=== PATIENT | female | born 1985 | race Caucasian/White ===

== ENCOUNTER 2016-08-29 10:01 | Emergency (ER) | payer OTHER ==
[~2016-08-29] VITALS: Ht 175.3 cm; Wt 115.0 kg
[~2016-08-29 10:01] MED LIST: FLUO1TAB3 PO; GABA300C5 PO; GUAI100S5 PO; LEVA750T PO; MAGICPED SWISH-SWAL; OXYC1TAB63 PO; PRED20 PO; VENTAER INH; WALKER WHEELS/F1 MIS; ZOFR4TAB PO
[2016-08-29 10:03] VITALS: BP 133/82; PULSE 114; RESP 24; TEMP 98.1; O2SAT 95
[2016-08-29] MEDS ORDERED: SODIUM CHLOR 0.9% 1000 ML INJ 1,000 ML IV SCH (10:32)
[2016-08-29] MEDS ORDERED: ONDANSETRON HCL 4 MG/2 ML VIAL IVP ONE (10:45)
[2016-08-29] MEDS ORDERED: SODIUM CHLORIDE 0.9% FLUSH 5 ML FLUSH IVF PRN (10:45)
[2016-08-29] MEDS ORDERED: HYDROmorphone HCL PF 1 MG/ML VIAL IVS ONE (10:45)
--- NOTE | 2016-08-29 10:50 | PD ---
HPI Chief Complaint: Pain: Acute or Chronic Time Seen by Provider: 10:24 Travel History International Travel<30 days: No Contact w/Intl Traveler<30days: No Traveled to known affect area: No History of Present Illness HPI Patient is a 30-year-old female who presents to emergency room with complaints with acute on chronic pain. Patient reports that she has been having pain all over body since July, reports that she was admitted to the hospital for leukocytosis, reports that she was told that she had a viral infection and once her WBC went down, she was discharged to home with with prescription for pain medications and instructions to follow-up with Dr. Ernst in the office. Patient reports that she did go for follow-up appointment, reports that she reviewed the events of what occurred in the hospital and nothing else was done for her. Patient reports that she continues to have pain all over her whole body including her legs, reports left-sided calf pain, reports intermittent abdominal pain, reports that she has no abdominal pain at this time but does feel constipated from taking pain medications. Patient is complaining of productive cough, no fevers or chills. Patient denies chest pain or shortness of breath at this time. Patient reports that she is having pain all over body still, reports that she went to 2 other hospitals and was told that ultimately she will have to follow up with a table runner. Patient reports that she is out of her pain medications and is requesting a refill on her Percocets. Patient is requesting high-dose a Percocets as the 53 25 mg tablets do not help with her pain. Patient is requesting to have no workup at this time, patient does not want an IV placed, she is refusng labs or CAT scans or ultrasounds or x-rays performed at this time, patient reports that she is solely here for pain medication refills. PFSH Past Medical History Anxiety: Yes Depression: Yes Cancer: No Cardiovascular Problems: No Endocrine: No Gastrointestinal Disorders: Yes (Unkown etiology) Genitourinary: No Implanted Vascular Access Dvce: No Musculoskeletal: No Neurologic: No Psychiatric: Yes Reproductive: No Respiratory: No ?: Not LMP: AUG 2016 Past Surgical History Surgical History: No Previous Surgery Other Surgery: No Social History Alcohol Use: Yes (OCC) Tobacco Use: Yes (1/ PPD) Substance Use: Yes (MARIJUANA DAILY) Allergies-Medications (Allergen,Severity, Reaction): Coded Allergies: Adhesives (Verified Allergy, Unknown, 08/22/16) Reported Meds & Prescriptions Reported Meds & Active Scripts Active Ibuprofen 600 Mg Tab 600 Mg PO Q6H PRN Percocet (Oxycodone-Acetaminophen) 5-325 mg Tab 1 Tab PO Q6H PRN Walker with Front Wheels (Device) 1 Mis Mis 1 Ea .ROUTE DIRECTED Guaifenesin-Codeine Liq 100-10 Mg/5 Ml Soln 5 Ml PO Q4H PRN Ventolin Hfa 18 GM Inh (Albuterol Sulfate) 90 Mcg/Act Aer 1 Puff INH Q4H PRN Fluoxetine (Fluoxetine HCl) 20 Mg Tab 30 Mg PO DAILY Gabapentin 300 Mg Cap 300 Mg PO HS Reported Oxycodone-Acetaminophen 5-325 mg Tab 1 Tab PO Q4H PRN Prednisone 20 Mg Tab 2 Tab PO DAILY 40 MG twice a day x 3 days, then 20 MG daily x 3 days, then 10 MG daily x 3 days Review of Systems General / Constitutional: No: Fever, Chills Eyes: No: Visual changes HENT: No: Headaches Cardiovascular: No: Chest Pain or Discomfort Respiratory: Positive: Cough, No: Shortness of Breath Gastrointestinal: Positive: Nausea, Abdominal Pain, No: Vomiting, Diarrhea Genitourinary: No: Urgency, Frequency, Dysuria Musculoskeletal: Positive: Myalgias, Arthralgias, Pain Skin: No Rash Neurologic: No: Weakness Psychiatric: No: Depression Endocrine: No: Polydipsia Hematologic/Lymphatic: No: Easy Bruising Physical Exam Narrative GENERAL: Nontoxic, no acute distress SKIN: Warm and dry. HEAD: Atraumatic. Normocephalic. ENT: No nasal bleeding or discharge. Mucous membranes pink and moist. NECK: Trachea midline. No JVD. CARDIOVASCULAR: Regular rate and rhythm. No murmur appreciated. RESPIRATORY: No accessory muscle use. Clear to auscultation. Breath sounds equal bilaterally. GASTROINTESTINAL: Abdomen soft, non-tender, nondistended. Hepatic and splenic margins not palpable. MUSCULOSKELETAL: No obvious deformities. No clubbing. No cyanosis. No edema. Patient with positive Homans sign to the left calf NEUROLOGICAL: Awake and alert. No obvious cranial nerve deficits. Motor grossly within normal limits. Normal speech. PSYCHIATRIC: Appropriate mood and affect; insight and judgment normal. Data Data Last Documented VS Vital Signs Date Time Temp Pulse Resp B/P Pulse Ox O2 Delivery O2 Flow Rate FiO2 08/29/16 11:19 91 23 136/58 99 08/29/16 10:03 98.1 Room Air Orders Complete Blood Count With Diff (08/29/16 10:32) Comprehensive Metabolic Panel (08/29/16 10:32) Lipase (08/29/16 10:32) Urinalysis - C+S If Indicated (08/29/16 10:32) Iv Access Insert/Monitor (08/29/16 10:32) Oximetry (08/29/16 10:32) Ondansetron Inj (Zofran Inj) (08/29/16 10:45) Sodium Chlor 0.9% 1000 Ml Inj (Ns 1000 M (08/29/16 10:32) Sodium Chloride 0.9% Flush (Ns Flush) (08/29/16 10:45) Chest, Single Ap (08/29/16 10:32) Hydromorphone Pf Inj (Dilaudid Pf Inj) (08/29/16 10:45) Ed Urine Pregnancytest Poc (08/29/16 10:32) Us Leg Venous Doppler (08/29/16 ) Lactic Acid Sepsis Protocol (08/29/16 10:50) Influenzae A/B Antigen (08/29/16 10:50) Blood Culture (08/29/16 13:02) Labs Laboratory Tests Test 08/29/16 08/29/16 08/29/16 10:30 10:50 12:15 White Blood Count 18.8 TH/MM3 Red Blood Count 4.20 MIL/MM3 Hemoglobin 12.7 GM/DL Hematocrit 37.4 % Mean Corpuscular Volume 89.0 FL Mean Corpuscular Hemoglobin 30.3 PG Mean Corpuscular Hemoglobin 34.1 % Concent Red Cell Distribution Width 13.3 % Platelet Count 530 TH/MM3 Mean Platelet Volume 7.7 FL Neutrophils (%) (Auto) 85.1 % Lymphocytes (%) (Auto) 9.4 % Monocytes (%) (Auto) 4.7 % Eosinophils (%) (Auto) 0.5 % Basophils (%) (Auto) 0.3 % Neutrophils # (Auto) 16.0 TH/MM3 Lymphocytes # (Auto) 1.8 TH/MM3 Monocytes # (Auto) 0.9 TH/MM3 Eosinophils # (Auto) 0.1 TH/MM3 Basophils # (Auto) 0.1 TH/MM3 CBC Comment DIFF FINAL Differential Comment Sodium Level 137 MEQ/L Potassium Level 4.1 MEQ/L Chloride Level 102 MEQ/L Carbon Dioxide Level 25.7 MEQ/L Anion Gap 9 MEQ/L Blood Urea Nitrogen 9 MG/DL Creatinine 0.66 MG/DL Estimat Glomerular Filtration 105 ML/MIN Rate Random Glucose 99 MG/DL Lactic Acid Level 2.0 mmol/L Calcium Level 8.9 MG/DL Total Bilirubin 0.6 MG/DL Aspartate Amino Transf 10 U/L (AST/SGOT) Alanine Aminotransferase 35 U/L (ALT/SGPT) Alkaline Phosphatase 112 U/L Total Protein 8.1 GM/DL Albumin 3.1 GM/DL Lipase 96 U/L Urine Color YELLOW Urine Turbidity HAZY Urine pH 8.5 Urine Specific [place] 1.018 Urine Protein 30 mg/dL Urine Glucose (UA) NEG mg/dL Urine Ketones NEG mg/dL Urine Occult Blood NEG Urine Nitrite NEG Urine Bilirubin NEG Urine Urobilinogen LESS THAN 2.0 MG/DL Urine Leukocyte Esterase NEG Urine RBC 1 /hpf Urine WBC 1 /hpf Urine Squamous Epithelial 5 /hpf Cells Microscopic Urinalysis Comment CULT NOT INDICATED MDM Medical Decision Making Medical Screen Exam Complete: Yes Emergency Medical Condition: Yes Interpretation(s) Vital Signs Date Time Temp Pulse Resp B/P Pulse Ox O2 Delivery O2 Flow Rate FiO2 08/29/16 10:03 98.1 114 24 133/82 95 Room Air Differential Diagnosis Acute on chronic pain, fibromyalgia, constipation, DVT, pneumonia, influenza, electrolyte abnormality, opiate abuse Narrative Course Patient is a 30-year-old female who presents to emergency room for evaluation of acute on chronic pain. Patient reports that she started taking pain medications after she was discharged from the hospital in July, reports that she has run out of her pain medications. Patient reports that she has frequented to other emergency rooms, reports that she has a leukocytosis of unknown etiology and pain all over her body. Patient reports that she cannot afford to see a primary care doctor as she does not have insurance and cannot pay for her healthcare. Patient at this time refuses all medical workup and requests pain medications specifically, requests IV Dilaudid in the emergency room as this is the only pain medication that helps her. Patient also requests a refill on her Percocet, requests a higher dose of Percocet because the 5/325 mg dose is not helping with her pain. Patient vital signs reviewed, patient is tachycardic with a heart rate in the 114's with a respiratory rate of 24 On evaluation, patient is nontoxic, but she does have left lower leg cramping and pain to her calf. Discussed with patient that she was recently admitted to the hospital with sepsis of unknown etiology, she reports that she has been coughing for the past few days, discussed that with this and her abnormal vital signs, she will need a medical workup. Discussed with her that I cannot just give her pain medications and send her home as this would be unsafe for her. Discussed my concern for her safety at this time. Also discussed with patient that she will need to follow-up with primary care doctor and discussed with her that she cannot use the emergency room as her chronic pain medication prescribers. X-ray of the chest ordered for further evaluation of possible pneumonia. CBC, BMP ordered for evaluation of infection versus electrolyte abnormalities. Patient reevaluated, patient reports that she is feeling better. Abdomen is soft, nontender, nondistended, no peritoneal signs. CBC & BMP Diagram 08/29/16 10:30 08/29/16 10:50 Patient with persistent leukocytosis with a white count of 18.8 with no source of infection. Lactate is 2.0, her BMP is within normal limits UA with no signs of infection, influenza negative, x-ray of chest with no signs pneumonia US OF LEFT EXTREMITY WITH NO SIGNS OF DVT Discussed with patient that if she continues have pain to her left lower extremity, she will need a repeat some of her leg in 1 week. I did offer patient admission for further work up of her leukocytosis, patient does not want to be admitted to the hospital, further that blood cultures be obtained and be followed, reports that she feels worse, she will return to the emergency room for further admission and workup. Request to be discharged from emergency room at this time. Signs and symptoms of when to return to the emergency room reviewed patient in detail. Diagnosis Primary Impression: Leukocytosis Qualified Code: D72.828 - Other elevated white blood cell (WBC) count Additional Impression: Chronic pain Qualified Code: G89.4 - Chronic pain syndrome Patient Instructions: General Instructions, Narcotic given in the ED Additional Instructions: Please follow-up with your primary care doctor as soon as possible Return to ER as needed Please follow-up with [facility] from today Please have ultrasound of your leg repeated in 1 week if pain persists Med/Other Pt SpecificInfo: Prescription(s) given Scripts Ibuprofen 600 Mg [id number] Mg PO Q6H PRN (Pain/Inflammation) #40 TAB Ref 0 Prov:Aisha Haynes DO 08/29/16 Oxycodone-Acetaminophen (Percocet)5-325 mg Tab1 Tab PO Q6H PRN (PAIN) #7 TAB Ref 0 Prov:Aisha Haynes DO 08/29/16 Disposition: 01 DISCHARGE HOME Condition: Stable Aisha Haynes DO Aug 29, 2016 10:50
--- NOTE | 2016-08-29 11:08 | RADRPT ---
EXAM DATE/TIME: 08/29/2016 10:48 [facility] COMPARISON: CHEST SINGLE AP, July 29, 2016, 13:01. INDICATIONS : Evaluate for free air. MEDICAL HISTORY : Anxiety SURGICAL HISTORY : None. ENCOUNTER: Initial ACUITY: 1 month PAIN SCORE: 10/10 LOCATION: Bilateral chest FINDINGS: A single view of the chest demonstrates the lungs to be symmetrically aerated without evidence of mas s, infiltrate or effusion. The cardiomediastinal contours are unremarkable. Osseous structures are intact. No free intraperitoneal air is identified on this examination. CONCLUSION: No acute cardiopulmonary disease. No free intraperitoneal air identified. Greg Barragan MD on August 29, 2016 at 11:06 Board Certified Radiologist. This report was verified electronically.
[2016-08-29 11:16] LABS: BASOPHIL # 0.1 TH/MM3 (0-0.2); BASOPHIL % 0.3 % (0.0-2.0); EOSINOPHIL # 0.1 TH/MM3 (0-0.4); EOSINOPHIL % 0.5 % (0.0-4.0); HEMATOCRIT 37.4 % (35.0-46.0); HEMO FLAGS DIFF FINAL; LYMPH % 9.4 % (9.0-44.0); LYMPHOCYTE # 1.8 TH/MM3 (1.0-4.8); MEAN CORPUSCULAR HEMOGLOBIN 30.3 PG (27.0-34.0); MEAN CORPUSCULAR HGB CONC 34.1 % (32.0-36.0); MONO % 4.7 % (0.0-8.0); NEUT % 85.1 % (16.0-70.0); PLATELET COUNT 530 TH/MM3 (150-450); RED CELL DISTRIBUTION WIDTH 13.3 % (11.6-17.2); WHITE BLOOD COUNT 18.8 TH/MM3 (4.0-11.0)
[2016-08-29 11:19] VITALS: BP 136/58; PULSE 91; RESP 23; O2SAT 99
[2016-08-29 11:35] LABS: ANION GAP 9 MEQ/L (5-15); AST (GOT) 10 U/L (15-37); BICARBONATE 25.7 MEQ/L (21.0-32.0); BLOOD UREA NITROGEN 9 MG/DL (7-18); CHLORIDE 102 MEQ/L (98-107); GLOMERULAR FILTRATION RATE 105 ML/MIN (>89); POTASSIUM 4.1 MEQ/L (3.5-5.1); SODIUM (NA) 137 MEQ/L (136-145)
[2016-08-29 11:38] LABS: ALKALINE PHOSPHATASE 112 U/L (45-117); ALT (GPT) 35 U/L (10-53); TOTAL BILIRUBIN ADULT 0.6 MG/DL (0.2-1.0)
--- NOTE | 2016-08-29 12:14 | RADRPT ---
EXAM DATE/TIME: 08/29/2016 11:18 [facility] COMPARISON: No previous studies available for comparison. INDICATIONS : Pain in left lower extremity. MEDICAL HISTORY : Abdominal pain. Aneixty. Depression. SURGICAL HISTORY : None. ENCOUNTER: Initial ACUITY: 1 month PAIN SCORE: 5/10 LOCATION: Left leg. TECHNIQUE: Venous ultrasound of the leg was performed from the inguinal ligament to the proximal calf. Real-alpesh e, color Doppler and spectral tracing, compression and augmentation techniques were used. FINDINGS: There is normal compressibility of the deep venous system from the inguinal region to the proximal ca lf. No echogenic clot is seen in the lumen of the common femoral, femoral, popliteal, and posterior tibial veins. There is a normal response of the venous system to proximal and distal augmentation an d respiration. CONCLUSION: Normal examination. Nhung Mcgregor MD on August 29, 2016 at 12:12 Board Certified Radiologist. This report was verified electronically.
[2016-08-29 12:32] LABS: BLOOD, URINE NEG (NEG); GLUCOSE,URINE NEG (NEG); KETONE, URINE NEG (NEG); NITRITE,URINE NEG (NEG); PH, URINE 8.5 (5.0-8.5); SQUAMOUS EPITHELIAL CELL URINE 5 /hpf (0-5); URINE COLOR YELLOW (YELLW/STRAW)
[2016-08-29 12:33] LABS: COMMENT (UR) CULT NOT INDICATED; CULTURE IF INDICATED CULT NOT INDICATED
[2016-08-29] MEDS ORDERED: PERC5TAB12 PO (13:05)
[2016-08-29] MEDS ORDERED: IBUP-232 PO (13:05)
== END 2016-08-29 14:09 | disposition home or self-care (01) ==
LOC: NEPA 10:01
DX: D72.828 Other elevated white blood cell count (principal); G89.4 Chronic pain syndrome; M79.605 Pain in left leg
CPT/HCPCS: 71010; 80053; 81001; 83605; 83690; 85025; 87040; 87804; 93971; 96374; 96375; 99284; J1170; J2405; J7030

== ENCOUNTER 2016-08-31 05:23 | Emergency (ER) | payer OTHER ==
[~2016-08-31] VITALS: Ht 177.8 cm; Wt 90.0 kg
[~2016-08-31 05:23] MED LIST changes: +IBUP-232 PO; -LEVA750T PO; -MAGICPED SWISH-SWAL; +PERC5TAB12 PO; -ZOFR4TAB PO
[2016-08-31 05:25] VITALS: BP 122/88; PULSE 86; RESP 18; TEMP 98.7; O2SAT 98
[2016-08-31] MEDS ORDERED: PROMETHAZINE INJ 25 MG/ML VIAL IM ONE (05:45)
[2016-08-31] MEDS ORDERED: BENT20TA PO (05:54)
[2016-08-31] MEDS ORDERED: PROM25TA5 PO (05:54)
--- NOTE | 2016-08-31 05:56 | PD ---
HPI Chief Complaint: GI Complaint Time Seen by Provider: 05:36 Travel History International Travel<30 days: No Contact w/Intl Traveler<30days: No Traveled to known affect area: No History of Present Illness HPI 30-year-old female here for the fourth time over the course the last 1-2 months with complaint of generalized body pain, sore throat, cough, chest congestion. Patient has had these symptoms again for the last 1-2 months. She is out of her pain medications and presents the emergency department requesting something for pain. Patient states that she is having pain throughout the body, 1 spot not worse than the next. Associated nausea and vomiting. No fevers or chills. She notes a sore throat, cough and chest congestion with minimal sputum production. No recent travel or sick contacts. Patient seen here in emergency department approximately 36 hours ago with negative laboratory workup other than baseline mild leukocytosis which she has had previously (and had recently been on corticosteroids). Both on that visit and today she requests Dilaudid by name, as does the female guest in her room, stating that morphine and Toradol do not work for her. Female auditor appraiser states "we know they don't do Dilaudid at the other ER, but they gave her something that helped and we would like that here". Patient has follow-up with rheumatology in October, but does not have health insurance and has not followed up with PCP. Her gabapentin was recently increased and she was started on Cymbalta. PFSH Past Medical History Anxiety: Yes Depression: Yes Cancer: No Cardiovascular Problems: No Endocrine: No Gastrointestinal Disorders: Yes (Unkown etiology) Genitourinary: No Implanted Vascular Access Dvce: No Musculoskeletal: No Neurologic: No Psychiatric: Yes Reproductive: No Respiratory: No ?: Not LMP: AUG 2016 Past Surgical History Other Surgery: No Social History Alcohol Use: Yes (OCC) Tobacco Use: Yes (08/20 PPD) Substance Use: Yes (MARIJUANA DAILY) Allergies-Medications (Allergen,Severity, Reaction): Coded Allergies: Adhesives (Verified Allergy, Unknown, 08/31/16) Reported Meds & Prescriptions Reported Meds & Active Scripts Active Bentyl (Dicyclomine HCl) 20 Mg Tab 20 Mg PO TID PRN Phenergan (Promethazine HCl) 25 Mg Tab 25 Mg PO Q6H PRN Ibuprofen 600 Mg Tab 600 Mg PO Q6H PRN Percocet (Oxycodone-Acetaminophen) 5-325 mg Tab 1 Tab PO Q6H PRN Walker with Front Wheels (Device) 1 Mis Mis 1 Ea .ROUTE DIRECTED Guaifenesin-Codeine Liq 100-10 Mg/5 Ml Soln 5 Ml PO Q4H PRN Ventolin Hfa 18 GM Inh (Albuterol Sulfate) 90 Mcg/Act Aer 1 Puff INH Q4H PRN Fluoxetine (Fluoxetine HCl) 20 Mg Tab 30 Mg PO DAILY Gabapentin 300 Mg Cap 300 Mg PO HS Reported Oxycodone-Acetaminophen 5-325 mg Tab 1 Tab PO Q4H PRN Prednisone 20 Mg Tab 2 Tab PO DAILY 40 MG twice a day x 3 days, then 20 MG daily x 3 days, then 10 MG daily x 3 days Review of Systems Except as stated in HPI: all other systems reviewed are Neg Physical Exam Narrative GENERAL: Morbidly obese female in no acute distress SKIN: Warm and dry. HEAD: Normocephalic. EYES: No scleral icterus. No injection or drainage. ENT: Mucous membranes pink and moist. Posterior pharynx clear without tonsillar erythema, exudate, edema. NECK: Supple CARDIOVASCULAR: Regular rate and rhythm. No murmur appreciated. RESPIRATORY: No accessory muscle use. Clear to auscultation. Breath sounds equal bilaterally. GASTROINTESTINAL: Abdomen soft, non-tender, nondistended. Obese MUSCULOSKELETAL: Moves all extremities normally NEUROLOGICAL: Awake and alert. Normal gait. Normal speech. PSYCHIATRIC: Blunted mood and affect, poor eye contact Data Data Last Documented VS Vital Signs Date Time Temp Pulse Resp B/P Pulse Ox O2 Delivery O2 Flow Rate FiO2 08/31/16 05:25 98.7 86 18 122/88 98 Room Air Orders Promethazine Inj (Phenergan Inj) (08/31/16 05:45) Dicyclomine Inj (Bentyl Inj) (08/31/16 06:00) MDM Medical Decision Making Medical Screen Exam Complete: Yes Emergency Medical Condition: Yes Medical Record Reviewed: Yes Differential Diagnosis 30-year-old female here with one to 2 months of generalized body aches, pains, cough cold chest congestion, nausea and vomiting with leukocytosis of undetermined etiology. Differential includes chronic pain, rheumatoid disorder , autoimmune disorder, fibromyalgia, medication side effect, opioid withdrawal, malingering, drug-seeking behavior. Narrative Course Patient has had extensive workup, most recently with labs just with the last 36 hours and were unremarkable. Patient requests not to have any further workup here today, only wanting "something for my pain". Patient and female auditor appraiser again reiterate that morphine and Toradol didn't work for her, Dilaudid has worked for her in the past. Patient has multiple red flags for drug-seeking behavior. Patient has chronic pain and opioids are not appropriate care plan. This was discussed with her and her female auditor appraiser. I informed them that I am happy to treat her pain with any nonnarcotic means possible. Patient was given IM Phenergan, Bentyl. Shortly after medication administration patient questioned how long it would take for her medications to kick in because she "needs to get home to get a family member to work." I offered to allow her to stay for oral challenge but patient is requesting discharged home at this time. Her prompt voluntary request for discharge prior to symptom resolution after I declined treating her with narcotics is yet another flag for drug-seeking behavior. She was encouraged to follow up with outpatient PCP and given information for [facility], patient assistance. Diagnosis Primary Impression: Drug-seeking behavior Additional Impressions: Chronic pain Qualified Code: G89.4 - Chronic pain syndrome Nausea & vomiting Qualified Code: R11.2 - Non-intractable vomiting with nausea, unspecified vomiting type Arthralgia Qualified Code: M25.50 - Arthralgia, unspecified joint Myalgia Referrals: Lisseth Ernst MD call for appointment Additional Instructions: Phenergan as needed for nausea. Bentyl as needed for abdominal pain. Follow- up with primary care provider to establish care, your pain can be managed best with a single provider seeing you longitudinally. The emergency department is not appropriate location to manage chronic pain. Med/Other Pt SpecificInfo: Prescription(s) given Scripts Dicyclomine (Bentyl)20 Mg Tab20 Mg PO TID PRN (Bowel Management) #30 TAB Ref 0 Prov:Luly Mcintyre MD 08/31/16 Promethazine (Phenergan)25 Mg Tab25 Mg PO Q6H PRN (Nausea/Vomiting) #10 TAB Ref 0 Prov:Luly Mcintyre MD 08/31/16 Disposition: 01 DISCHARGE HOME Condition: Stable Luly Mcintyre MD Aug 31, 2016 05:56
[2016-08-31] MEDS ORDERED: DICYCLOMINE HCL 20 MG/2 ML VIAL IM ONE (06:00)
[2016-08-31 06:10] VITALS: BP 120/89
== END 2016-08-31 06:11 | disposition home or self-care (01) ==
LOC: NEPE 05:23
DX: G89.4 Chronic pain syndrome (principal); M25.50 Pain in unspecified joint; R11.2 Nausea with vomiting, unspecified; F41.8 Other specified anxiety disorders; Z72.89 Other problems related to lifestyle
CPT/HCPCS: J0500; J2550; 96372

== ENCOUNTER 2017-01-29 21:22 | Emergency (ER) | payer OTHER ==
[~2017-01-29] VITALS: Ht 175.3 cm; Wt 120.0 kg
[~2017-01-29 21:22] MED LIST changes: +BENT20TA PO; +PROM25TA5 PO
[2017-01-29 21:25] VITALS: BP 141/87; PULSE 114; RESP 18; TEMP 99.1; O2SAT 97
[2017-01-29] MEDS ORDERED: SODIUM CHLOR 0.9% 1000 ML INJ 1,000 ML IV SCH (22:27)
[2017-01-29] MEDS ORDERED: SODIUM CHLORIDE 0.9% FLUSH 10 ML FLUSH IV FLUSH PRN (22:30)
--- NOTE | 2017-01-29 22:30 | PD ---
HPI Chief Complaint: Abdominal Pain Time Seen by Provider: 22:30 Travel History International Travel<30 days: No Contact w/Intl Traveler<30days: No Traveled to known affect area: No History of Present Illness HPI 31-year-old female history of RA, anxiety, presents to the emergency department today for evaluation of abdominal pain. Patient states over the last 2 weeks she has been having intermittent abdominal pain and formed brown stools with geraldine red blood noted in them. She states that the pain has been tolerable until today she had an episode where with sharp and stabbing epigastric that radiated to the right and then the left lower into her flank area. Denies any fever or chills. States that she is intermittently nauseous due to anxiety and has not been able to differentiate any changes in her nausea. No vomiting. Patient denies any urinary symptoms. Denies any chest pain or tightness. No difficulty breathing. Patient states that this time her pain is not as bad as it was but due to the bloody stools and the generalized characteristic of the pain, she came to the urgency department for evaluation. Patient states last menstrual cycle was 2 months ago. This is abnormal for her as she is usually regular. Denies any chance of . States that she does not have sexual intercourse. She reports no abdominal surgery history. PFSH Past Medical History Anxiety: Yes Depression: Yes Cancer: No Cardiovascular Problems: No Endocrine: No Gastrointestinal Disorders: Yes (Unkown etiology) Genitourinary: No Implanted Vascular Access Dvce: No Medical other: Yes (RA) Musculoskeletal: No Neurologic: No Psychiatric: Yes Reproductive: No Respiratory: No ?: Not LMP: 11/29/16 Past Surgical History Other Surgery: No Social History Alcohol Use: Yes (OCC) Tobacco Use: Yes (08/20 PPD) Substance Use: Yes (MARIJUANA DAILY) Allergies-Medications (Allergen,Severity, Reaction): Coded Allergies: Adhesives (Verified Allergy, Unknown, 01/29/17) Reported Meds & Prescriptions Reported Meds & Active Scripts Active Bactrim DS (Sulfamethoxazole-Trimethoprim) 800-160 Mg Tab 1 Tab PO BID Bentyl (Dicyclomine HCl) 20 Mg Tab 20 Mg PO TID PRN Phenergan (Promethazine HCl) 25 Mg Tab 25 Mg PO Q6H PRN Ibuprofen 600 Mg Tab 600 Mg PO Q6H PRN Percocet (Oxycodone-Acetaminophen) 5-325 mg Tab 1 Tab PO Q6H PRN Walker with Front Wheels (Device) 1 Mis Mis 1 Ea .ROUTE DIRECTED Guaifenesin-Codeine Liq 100-10 Mg/5 Ml Soln 5 Ml PO Q4H PRN Ventolin Hfa 18 GM Inh (Albuterol Sulfate) 90 Mcg/Act Aer 1 Puff INH Q4H PRN Fluoxetine (Fluoxetine HCl) 20 Mg Tab 30 Mg PO DAILY Gabapentin 300 Mg Cap 300 Mg PO HS Reported Oxycodone-Acetaminophen 5-325 mg Tab 1 Tab PO Q4H PRN Prednisone 20 Mg Tab 2 Tab PO DAILY 40 MG twice a day x 3 days, then 20 MG daily x 3 days, then 10 MG daily x 3 days Review of Systems Except as stated in HPI: all other systems reviewed are Neg Physical Exam Narrative GENERAL: Well-nourished female patient, ambulatory, lightly anxious but in no acute distress. SKIN: Focused skin assessment warm/dry. HEAD: Atraumatic. Normocephalic. EYES: Pupils equal and round. No scleral icterus. No injection or drainage. ENT: No nasal bleeding or discharge. Mucous membranes pink and moist. NECK: Trachea midline. No JVD. CARDIOVASCULAR: Tachycardic rate and rhythm. No murmur appreciated. RESPIRATORY: No accessory muscle use. Clear to auscultation. Breath sounds equal bilaterally. GASTROINTESTINAL: Abdomen soft, nondistended. Intermittent tenderness to palpation in the epigastrium, right upper, left lower quadrants. There is no guarding. There is no rebound tenderness.. Hepatic and splenic margins not palpable. MUSCULOSKELETAL: No obvious deformities. No clubbing. No cyanosis. No edema. No CVA tenderness. NEUROLOGICAL: Awake and alert. No obvious cranial nerve deficits. Motor grossly within normal limits. Normal speech. PSYCHIATRIC: Appropriate mood and affect; insight and judgment normal. Data Data Last Documented VS Vital Signs Date Time Temp Pulse Resp B/P Pulse Ox O2 Delivery O2 Flow Rate FiO2 01/30/17 00:55 98.4 75 18 121/79 97 Room Air Orders Complete Blood Count With Diff (01/29/17 22:27) Comprehensive Metabolic Panel (01/29/17 22:27) Lipase (01/29/17 22:27) Prothrombin Time / Inr (Pt) (01/29/17 22:27) Act Partial Throm Time (Ptt) (01/29/17 22:27) Urinalysis - C+S If Indicated (01/29/17 22:27) Iv Access Insert/Monitor (01/29/17 22:27) Ecg Monitoring (01/29/17 22:27) Oximetry (01/29/17 22:27) Sodium Chlor 0.9% 1000 Ml Inj (Ns 1000 M (01/29/17 22:27) Sodium Chloride 0.9% Flush (Ns Flush) (01/29/17 22:30) Ed Urine Pregnancytest Poc (01/29/17 22:27) Urine Culture (01/29/17 23:59) Labs Laboratory Tests Test 01/29/17 01/29/17 22:40 23:59 Prothrombin Time 10.4 SEC Prothromb Time International 0.9 RATIO Ratio Activated Partial 25.4 SEC Thromboplast Time Sodium Level 141 MEQ/L Potassium Level 4.0 MEQ/L Chloride Level 108 MEQ/L Carbon Dioxide Level 25.6 MEQ/L Anion Gap 7 MEQ/L Blood Urea Nitrogen 13 MG/DL Creatinine 0.62 MG/DL Estimat Glomerular Filtration 112 ML/MIN Rate Random Glucose 82 MG/DL Calcium Level 8.9 MG/DL Total Bilirubin 0.6 MG/DL Aspartate Amino Transf 40 U/L (AST/SGOT) Alanine Aminotransferase 60 U/L (ALT/SGPT) Alkaline Phosphatase 84 U/L Total Protein 7.8 GM/DL Albumin 3.8 GM/DL Lipase 220 U/L White Blood Count 12.8 TH/MM3 Red Blood Count 4.90 MIL/MM3 Hemoglobin 14.0 GM/DL Hematocrit 43.6 % Mean Corpuscular Volume 88.9 FL Mean Corpuscular Hemoglobin 28.6 PG Mean Corpuscular Hemoglobin 32.1 % Concent Red Cell Distribution Width 14.2 % Platelet Count 296 TH/MM3 Mean Platelet Volume 8.7 FL Neutrophils (%) (Auto) 85.5 % Lymphocytes (%) (Auto) 7.6 % Monocytes (%) (Auto) 6.5 % Eosinophils (%) (Auto) 0.2 % Basophils (%) (Auto) 0.2 % Neutrophils # (Auto) 10.9 TH/MM3 Lymphocytes # (Auto) 1.0 TH/MM3 Monocytes # (Auto) 0.8 TH/MM3 Eosinophils # (Auto) 0.0 TH/MM3 Basophils # (Auto) 0.0 TH/MM3 CBC Comment DIFF FINAL Differential Comment Urine Color DARK-YELLOW Urine Turbidity CLEAR Urine pH 7.5 Urine Specific [place] 1.015 Urine Protein NEG mg/dL Urine Glucose (UA) NEG mg/dL Urine Ketones NEG mg/dL Urine Occult Blood MOD Urine Nitrite NEG Urine Bilirubin NEG Urine Urobilinogen LESS THAN 2.0 MG/DL Urine Leukocyte Esterase MOD Urine RBC 1 /hpf Urine WBC 10 /hpf Urine Squamous Epithelial 3 /hpf Cells Urine Bacteria OCC /hpf Microscopic Urinalysis Comment CULTURE INDICATED MDM Medical Decision Making Medical Screen Exam Complete: Yes Emergency Medical Condition: Yes Medical Record Reviewed: Yes Differential Diagnosis Gastroenteritis versus gastritis versus colitis versus ovarian cyst versus UTI versus renal calculi versus diverticulitis versus pancreatitis versus cholecystitis versus appendicitis Narrative Course 31-year-old female presents to emergency department for evaluation of abdominal pain. Patient appears well despite being a little anxious. Abdominal exam is essentially benign with intermittent tenderness to palpation in the epigastrium , right upper quadrant and left lower quadrant. Vital signs are stable. 2300 I discussed the patient with my attending physician. He will assume care at this time. Scripts Sulfamethoxazole-Trimethoprim (Bactrim DS)800-160 Mg Tab1 Tab PO BID #6 TAB Ref 1 Prov:Misael Campbell MD 01/30/17 Condition: Stable Xuan Valverde Jan 29, 2017 22:30
[2017-01-29 22:59] LABS: AUTOMATED NEUTROPHIL # 10.9 TH/MM3 (1.8-7.7); BASOPHIL % 0.2 % (0.0-2.0); EOSINOPHIL % 0.2 % (0.0-4.0); HEMATOCRIT 43.6 % (35.0-46.0); HEMO FLAGS DIFF FINAL; LYMPH % 7.6 % (9.0-44.0); MEAN CELL VOLUME 88.9 FL (80.0-100.0); MEAN CORPUSCULAR HEMOGLOBIN 28.6 PG (27.0-34.0); MEAN CORPUSCULAR HGB CONC 32.1 % (32.0-36.0); MONO % 6.5 % (0.0-8.0); NEUT % 85.5 % (16.0-70.0); PLATELET COUNT 296 TH/MM3 (150-450); RED CELL DISTRIBUTION WIDTH 14.2 % (11.6-17.2); WHITE BLOOD COUNT 12.8 TH/MM3 (4.0-11.0)
[2017-01-29 23:06] VITALS: O2SAT 100
[2017-01-29 23:06] LABS: APTT (PATIENT) 25.4 SEC (24.3-30.1); INTERNATIONAL NORMALIZED RATIO 0.9 RATIO; PROTHROMBIN TIME - PATIENT 10.4 SEC (9.8-11.6)
[2017-01-29 23:22] LABS: ALKALINE PHOSPHATASE 84 U/L (45-117); TOTAL BILIRUBIN ADULT 0.6 MG/DL (0.2-1.0)
[2017-01-29 23:32] LABS: ALT (GPT) 60 U/L (10-53); ANION GAP 7 MEQ/L (5-15); AST (GOT) 40 U/L (15-37); BICARBONATE 25.6 MEQ/L (21.0-32.0); BLOOD UREA NITROGEN 13 MG/DL (7-18); CHLORIDE 108 MEQ/L (98-107); GLOMERULAR FILTRATION RATE 112 ML/MIN (>89); SODIUM (NA) 141 MEQ/L (136-145)
[2017-01-30 00:32] LABS: BACTERIA, URINE OCC /hpf; BLOOD, URINE MOD (NEG); COMMENT (UR) CULTURE INDICATED; CULTURE IF INDICATED CULTURE INDICATED; GLUCOSE,URINE NEG (NEG); KETONE, URINE NEG (NEG); NITRITE,URINE NEG (NEG); PH, URINE 7.5 (5.0-8.5); SQUAMOUS EPITHELIAL CELL URINE 3 /hpf (0-5); URINE COLOR DARK-YELLOW (YELLW/STRAW)
--- NOTE | 2017-01-30 00:34 | PD ---
Data Data Last Documented VS Vital Signs Date Time Temp Pulse Resp B/P Pulse Ox O2 Delivery O2 Flow Rate FiO2 01/30/17 00:55 98.4 75 18 121/79 97 Room Air Orders Complete Blood Count With Diff (01/29/17 22:27) Comprehensive Metabolic Panel (01/29/17 22:27) Lipase (01/29/17 22:27) Prothrombin Time / Inr (Pt) (01/29/17 22:27) Act Partial Throm Time (Ptt) (01/29/17 22:27) Urinalysis - C+S If Indicated (01/29/17 22:27) Iv Access Insert/Monitor (01/29/17 22:27) Ecg Monitoring (01/29/17 22:) Oximetry (01/29/17 22:27) Sodium Chlor 0.9% 1000 Ml Inj (Ns 1000 M (01/29/17 22:27) Sodium Chloride 0.9% Flush (Ns Flush) (01/29/17 22:30) Ed Urine Pregnancytest Poc (01/29/17 22:27) Urine Culture (01/29/17 23:59) Labs Laboratory Tests Test 01/29/17 01/29/17 22:40 23:59 Prothrombin Time 10.4 SEC Prothromb Time International 0.9 RATIO Ratio Activated Partial 25.4 SEC Thromboplast Time Sodium Level 141 MEQ/L Potassium Level 4.0 MEQ/L Chloride Level 108 MEQ/L Carbon Dioxide Level 25.6 MEQ/L Anion Gap 7 MEQ/L Blood Urea Nitrogen 13 MG/DL Creatinine 0.62 MG/DL Estimat Glomerular Filtration 112 ML/MIN Rate Random Glucose 82 MG/DL Calcium Level 8.9 MG/DL Total Bilirubin 0.6 MG/DL Aspartate Amino Transf 40 U/L (AST/SGOT) Alanine Aminotransferase 60 U/L (ALT/SGPT) Alkaline Phosphatase 84 U/L Total Protein 7.8 GM/DL Albumin 3.8 GM/DL Lipase 220 U/L White Blood Count 12.8 TH/MM3 Red Blood Count 4.90 MIL/MM3 Hemoglobin 14.0 GM/DL Hematocrit 43.6 % Mean Corpuscular Volume 88.9 FL Mean Corpuscular Hemoglobin 28.6 PG Mean Corpuscular Hemoglobin 32.1 % Concent Red Cell Distribution Width 14.2 % Platelet Count 296 TH/MM3 Mean Platelet Volume 8.7 FL Neutrophils (%) (Auto) 85.5 % Lymphocytes (%) (Auto) 7.6 % Monocytes (%) (Auto) 6.5 % Eosinophils (%) (Auto) 0.2 % Basophils (%) (Auto) 0.2 % Neutrophils # (Auto) 10.9 TH/MM3 Lymphocytes # (Auto) 1.0 TH/MM3 Monocytes # (Auto) 0.8 TH/MM3 Eosinophils # (Auto) 0.0 TH/MM3 Basophils # (Auto) 0.0 TH/MM3 CBC Comment DIFF FINAL Differential Comment Urine Color DARK-YELLOW Urine Turbidity CLEAR Urine pH 7.5 Urine Specific [place] 1.015 Urine Protein NEG mg/dL Urine Glucose (UA) NEG mg/dL Urine Ketones NEG mg/dL Urine Occult Blood MOD Urine Nitrite NEG Urine Bilirubin NEG Urine Urobilinogen LESS THAN 2.0 MG/DL Urine Leukocyte Esterase MOD Urine RBC 1 /hpf Urine WBC 10 /hpf Urine Squamous Epithelial 3 /hpf Cells Urine Bacteria OCC /hpf Microscopic Urinalysis Comment CULTURE INDICATED MDM Medical Record Reviewed: Yes Supervised Visit with MARCELA: Yes Narrative Course I, Dr. Campbell, have reviewed the advance practice practitioner's documentation and am in agreement, met with the patient face to face, made the diagnosis, and the medical decision making was done by me. *My assessment and Findings: CBC & BMP Diagram 01/29/17 22:40 AST 40 ALT 60 Lipase 222 INR 0.9 UA: possible cystitis POC : Negative The patient is resting comfortably and feels better, is alert and in no distress. The patients results and examination findings were discussed. The repeat examination is unremarkable and benign. The history, exam, diagnostic testing, and current condition do not suggest any significant pathology to warrant further testing, continued ED treatment, admission, or surgical evaluation at this point. The vital signs have been stable. The patient does not have uncontrollable pain, intractable vomiting, or other significant symptoms. The patient's condition is stable and appropriate for discharge. The patient will pursue further outpatient evaluation with a primary care physician or other designated or consulting physician as indicated in the discharge instructions. The patient expressed understanding and was agreeable with this plan. Diagnosis Primary Impression: Abdominal pain Qualified Code: R10.9 - Abdominal pain, unspecified location Additional Impressions: Elevated LFTs Bloody stools Cystitis Referrals: Gary Goins MD 2 days Additional Instruction: You have a choice when it comes to health care, and we are glad that you chose [facility]. Hopefully, we have met your expectations on today's visit. You are welcome to return to [facility] at any time, as we are committed to meeting the health care needs of our community. Med/Other Pt SpecificInfo: Prescription(s) given Scripts Sulfamethoxazole-Trimethoprim (Bactrim DS)800-160 Mg Tab1 Tab PO BID #6 TAB Ref 1 Prov:Misael Campbell MD 01/30/17 Disposition: 01 DISCHARGE HOME Condition: Misael Knutson MD Jan 30, 2017 00:34 Condition: Misael Knutson MD Jan 30, 2017 00:34
[2017-01-30] MEDS ORDERED: BACT800T5 PO (00:35)
[2017-01-30 00:55] VITALS: BP 121/79; PULSE 75; RESP 18; TEMP 98.4; O2SAT 97
== END 2017-01-30 00:59 | disposition home or self-care (01) ==
LOC: NEPC 21:22
DX: R10.9 Unspecified abdominal pain (principal); R79.89 Other specified abnormal findings of blood chemistry; K92.1 Melena; N30.90 Cystitis, unspecified without hematuria; B96.89 Other specified bacterial agents as the cause of diseases classified elsewhere
CPT/HCPCS: 80053; 81001; 83690; 84703; 85025; 85610; 85730; 87086; 99284; J7030